=== PATIENT | male | born 1940 | race Caucasian/White ===

== ENCOUNTER 2020-07-03 03:21 | Inpatient (IN) | payer MEDICARE, OTHER ==
[~2020-07-03] VITALS: Ht 170.2 cm; Wt 93.8 kg
[~2020-07-03 03:21] MED LIST: ASPI81CH PO; DILT120ERA PO; ELIQUIS5 M1 PO; ENAL20 PO; LOSA25 PO; MULVITMINE PO; SIMV10 PO; [UNRECOGNIZED DRUG - OTHER]
[2020-07-03 03:46] LABS: BASOPHILS ABSOLUTE AUTO 0.04 K/mm3 (0.00-0.23); BASOPHILS PERCENT AUTO 0 % (0-2); EOSINOPHILS ABSOLUTE AUTO 0.64 K/mm3 (0.00-0.68); EOSINOPHILS PERCENT AUTO 7 % (0-6); Hematocrit 47.5 % (37.0-53.0); Hemoglobin 15.7 g/dL (13.5-17.5); IMMATURE GRAN ABSOLUTE AUTO 0.02 K/mm3 (0.00-0.10); IMMATURE GRAN PERCENT AUTO 0 % (0-1); LYMPHOCYTES ABSOLUTE AUTO 2.65 K/mm3 (0.84-5.20); LYMPHOCYTES PERCENT AUTO 28 % (21-46); MONOCYTES ABSOLUTE AUTO 0.96 K/mm3 (0.16-1.47); MONOCYTES PERCENT AUTO 10 % (4-13); Mean Corpuscular HGB 32.5 pg (26.0-34.0); Mean Corpuscular HGB Conc 33.1 g/dL (31.5-36.5); Mean Corpuscular Volume 98 fL (80-100); Mean Platelet Volume 10.2 fL (9.1-12.4); NEUTROPHILS ABSOLUTE AUTO 5.15 K/mm3 (1.96-9.15); NEUTROPHILS PERCENT AUTO 55 % (41-73); Platelet Count 208 K/mm3 (150-400); RDW Coefficient Variation 13.7 % (11.7-14.2); RDW Standard Deviation 50.2 fL (35.1-46.3); Red Blood Cell Count 4.83 M/mm3 (4.30-5.90); White Blood Cell Count 9.46 K/mm3 (4.00-11.30)
[2020-07-03 04:06] LABS: Alanine Aminotransfer (ALT/SGP 35 U/L (12-78); Albumin, Blood 4.3 g/dL (3.4-5.0); Albumin/Globulin Ratio 1.2 (0.8-1.8); Alk Phos 59 U/L (50-136); Anion Gap 5 mmol/L (6-16); Aspartate Aminotrans (AST/SGOT 34 U/L (12-37); Bilirubin, Total 1.3 mg/dL (0.1-1.0); Blood Urea Nitrogen 22 mg/dL (8-24); Bun/Creatinine Ratio 15.8 (12.0-20.0); CO2, Blood 27 mmol/L (21-32); Calcium, Blood 8.2 mg/dL (8.5-10.1); Chloride, Blood 108 mmol/L (98-108); Creatinine, Blood 1.39 mg/dL (0.60-1.20); Globulin, Blood 3.5 g/dL (2.2-4.0); Glomerular Filtration Rate 52 (60-); Glucose, Blood 132 mg/dL (70-99); Potassium, Blood 4.9 mmol/L (3.5-5.5); Sodium, Blood 140 mmol/L (136-145); Total Protein, Blood 7.8 g/dL (6.4-8.2); Troponin I <0.015 ng/mL (0.000-0.040)
[2020-07-03] MEDS ORDERED: CYCLOBENZAPRINE 5 MG (04:58)
[2020-07-03] MEDS ORDERED: HYDROCODONE-AC1 EA11 (04:58)
[2020-07-03] MEDS ORDERED: NAPROXEN500 MG (04:59)
[2020-07-03] MEDS ORDERED: Lovastatin20 MG PO (05:01)
--- NOTE | 2020-07-03 06:00 | NUR ---
ADMISSION: PT ARRIVES ADMIT FROM THE ED. PER PT HE BEGAN TO FEEL HIS HEART RACING LAST NIGHT & AFTER TAKING HIS DOG FOR A WALK, IT BECAME WORSE. HE DROVE HIMSELF TO THE ED @ APPROX 0330 & WAS FOUND TO BE IN AFIB w/RVR W/ MAX RATE IN THE 150s. HE DOES HAVE A KNOWN Hx OF AFIB W/ LAST EPISODE OF RVR APPROX 5 YRS AGO WHICH WAS RESOLVED W/OUT CARDIOVERSION. TONIGHT HE WAS GIVEN A DILTIAZEM BOLUS & GTT STARTED. UPON ARRIVAL DILTIAZEM GTT 15ml/hr W/ HR 110-130bpm. PT DENIES ANY CP OR SOB, HOWEVER WHEN RECALLING MED Hx, PT WAS NOTABLY DYSPNEIC. PT IS ON RA @ HOME, PLACED ON 2L/MIN IN THE ED. SEE ADMIT FOR FULL ASSESSMENT. PLAN FOR RATE CONTROL THIS AM W/ DILTIAZEM DRIP. WILL CONTINUE TO MONITOR UNTIL REPORT OFF TO ONCOMING RN.
[2020-07-03 07:43] LABS: Influenza A, PCR NEGATIVE (NEGATIVE); Influenza B, PCR NEGATIVE (NEGATIVE); Resp Syncytial Virus, PCR NEGATIVE (NEGATIVE); SARS-Cov-2 (COVID-19) PCR, MMC NEGATIVE (NEGATIVE)
--- NOTE | 2020-07-03 11:45 | NUR ---
CARE COORDINATION REFERRAL - ADMIT:07/03/20 DISCHARGE: DX: RAPID AFIB CC: [facility] KAI CALL: PT AT HOME RESIDENCE: HOME CAREGIVER: MARTHA THURSTON, CHILD, MARTHA EPTTIT, FAMILY MEMBER, MARYCHUY WILSON, CHILD DX: AFIB AND A FLUTTER, HTN, CKD-STAGE 3, SEE LIST DME: NONE CCM: NONE HOME HEALTH: NONE SUMMARY: ADMIT: 07/03/20 07/03/20- PER CHART REVIEW WITH DR. MUNGUIA, PT IS HAVING AFIB WITH RVR. SHE HAS ASKED FOR A CARDIOLOGY CONSULT PRIOR TO PT D/C. PLAN IS TO D/C ON Friday. -LIZBET
--- NOTE | 2020-07-03 18:08 | NUR ---
PT SUMMARY: PT REMAINS ON CARDIZEM GTT AT 10MG/HR HRR REMAINS AFLUTTER RATE 80-110'S INCREASES UP TO 130'S, WITH EXERTION. PT ALSO C/O SOB/WHEEZING WITH EXERTION DR FLORES CAME TO SEE PT AND RE-ASSESSED TWICE AND ITS MORE OF LIKE UPPER RESPI WHEEZING AND RECOMMENDS TO WAIT FOR ECHO RESULT ORDERED VISTARIL FOR NOW FOR SLEEP/ANXIETY. PT DENIES ANY CHEST PAIN/PRESSURE. NO OTHER ISSUES REPORTED. DR NEIL CONSULTED FOR MEDICAL MANAGEMENT. AWAITING FOR ECHO RESULT AT THIS TIME, EKG IN AM. DAUGHTER CAME IN TO VISIT. NO OTHER ISSUES ENCOUNTERED. ABLE TO MAKE NEEDS KNOWN, CALLS APPROPRIATELY WILL MONITOR
--- NOTE | 2020-07-03 19:15 | NUR ---
PT ARRIVED IN THE UNIT VIA STRETCHER FROM [facility], WAS ABLE TO STAND TRANSFER TO PCU BED SBA, REPORT RECEIVED FROM ROBERTO ROGERS. VITALS HRR ST 130'S, BP SYSTOLIC 150'S, SATS ABOVE 95% ON2L OF O2, AFEBRILE. SOB WITH EXERTION. PT IS HERE FOR PULMONARY EMBOLISM RLL, PT ON HEPARIN GTT AT 15U/KG/HR. NS AT 100MLS/HR. PT GOT SITUATED IN BED, CURRENTLY NPO AT THIS TIME. ALERT AND ORIENTED X4 [place]. REPORT GIVEN TO NELSON GUTIERREZ RN
--- NOTE | 2020-07-03 19:45 | NUR ---
CARE ASSUMED FROM DAYSHIFT RN PT ON DILT GTT, SITTING UP IN CHAIR, SOB WITH ANY MOVEMENT. ON RA. BS: CLEAR BILAT DECREASED BASES. NO EDEMA NOTED. ALL ROUND BUTCHER IN ROOM GIVING DIG IV PUSH AND D/C CARDIZEM GTT. CONTINUE ASSESSMENT AND CARE.
--- NOTE | 2020-07-04 03:18 | NUR ---
ASSESSMENT MD NOTIFICATION A-FLUTTER RATE 125-145, HAS SLOWLY INCREASED OVER COURSE OF NIGHT. RESOURCE EFFICIENCY MANAGER AND MD NOTIFIED. PT SLEEPING, WAKES TO VOICE, A&O, VITALS STABLE AND NOTED IN FLOWSHEET. INCREASED AMTS UO OVERNIGHT, APROX 2100 ML MEASURED PLUS 3 UNMEASURED VOIDS. CONTINUE ASSESSMENT AND CARE.
[2020-07-04 04:04] LABS: BASOPHILS ABSOLUTE AUTO 0.03 K/mm3 (0.00-0.23); BASOPHILS PERCENT AUTO 0 % (0-2); EOSINOPHILS ABSOLUTE AUTO 0.51 K/mm3 (0.00-0.68); EOSINOPHILS PERCENT AUTO 6 % (0-6); Hematocrit 45.3 % (37.0-53.0); Hemoglobin 15.2 g/dL (13.5-17.5); IMMATURE GRAN ABSOLUTE AUTO 0.01 K/mm3 (0.00-0.10); IMMATURE GRAN PERCENT AUTO 0 % (0-1); LYMPHOCYTES ABSOLUTE AUTO 1.69 K/mm3 (0.84-5.20); LYMPHOCYTES PERCENT AUTO 19 % (21-46); MONOCYTES ABSOLUTE AUTO 0.83 K/mm3 (0.16-1.47); MONOCYTES PERCENT AUTO 9 % (4-13); Mean Corpuscular HGB 32.4 pg (26.0-34.0); Mean Corpuscular HGB Conc 33.6 g/dL (31.5-36.5); Mean Corpuscular Volume 97 fL (80-100); Mean Platelet Volume 10.3 fL (9.1-12.4); NEUTROPHILS PERCENT AUTO 66 % (41-73); Platelet Count 222 K/mm3 (150-400); RDW Coefficient Variation 13.6 % (11.7-14.2); RDW Standard Deviation 48.1 fL (35.1-46.3); Red Blood Cell Count 4.69 M/mm3 (4.30-5.90); White Blood Cell Count 8.97 K/mm3 (4.00-11.30)
[2020-07-04 04:31] LABS: Bun/Creatinine Ratio 16.8 (12.0-20.0); Calcium, Blood 8.9 mg/dL (8.5-10.1); Creatinine, Blood 1.49 mg/dL (0.60-1.20); Magnesium, Blood 2.2 mg/dL (1.6-2.4); Potassium, Blood 4.1 mmol/L (3.5-5.5); Thyroid Stimulating Hormone 2.13 uIU/mL (0.360-4.800)
--- NOTE | 2020-07-04 05:56 | NUR ---
MD NOTIFICATIONA FLUTTER INCREASED 125-150, MEDS GIVEN PER JUN. NO CHANGES. MD NOTIFIED, NO NEW ORDER AT THIS TIME.
--- NOTE | 2020-07-04 06:29 | NUR ---
MD JOSEPH EKG READS ACUTE NM/STEMI. PT HR REMAINS 130-145 A-FLUTTER. NOTOFI[address]. ALDANA, AND THEN NOTIFIED CARDI DR. NEIL. VETERINARY MEDICINE TEACHER AWARE.
--- NOTE | 2020-07-04 09:59 | NUR ---
SPOKE WITH PHYSICIAN PHYSICIAN ORDERS FOR ANOTHER BOLUS OF AMIODARONE, SEE EMAR.
--- NOTE | 2020-07-04 13:06 | NUR ---
Patient is sitting on a chair and alert. 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 He talks about the complications with regulating his heart rate and his hopes that it can be managed with medications. He talks about his Denominational background and that he has not been a part of the taoist for decades. He states that he finds his strength from family and friends. Patient shows no signs of spiritual distress and shares that he is at peace with and dying. I reinforce helpful attitudes and practices and provide therapeutic listening and companionship. Patient responds well and displays evidence of an elevated mood. I will continue to remain available to patient and family.
--- NOTE | 2020-07-04 14:37 | NUR ---
07/04/20- PER CHART REVIEW WITH DR. MUNGUIA, PT WILL NOT BE D/C TODAY DUE TO CARDIAC EVENTS BEING MONITORED BY DR. NEIL. PT HAD ECHO DONE YESTERDAY AND OVER NIGHT, HE WENT INTO AFLUTTER WITH RVR. HE HAS RESPONDED POSITIVE TO DIURESES. -LIZBET
--- NOTE | 2020-07-04 17:00 | NUR ---
IV INFILTRATED AMIODARONE GTT INFILTRATED IN R FOREARM. PHARMACY INFORMED. IV REMOVED. PT REPORTS NO TENDERNESS AT SITE.
--- NOTE | 2020-07-04 17:35 | NUR ---
SHIFT SUMMARY PT ALERT AND ORIENTED X 4. AMIO GTT, SEE EMAR. HR TACHYCARDIC, PHYSICIAN AWARE. SEE EHR. DISCUSSION OF POSSIBLE CARDIOVERSION IN AM WITH CLINICAL COORDINATOR. BP STABLE. OXYGEN SATURATION MAINTAINED ABOVE 92% ON RA. PT IND IN ROOM. WILL CONTINUE TO MONITOR UNTIL REPORT GIVEN TO NIGHTSHIFT RN.
[2020-07-05 04:41] LABS: BASOPHILS ABSOLUTE AUTO 0.03 K/mm3 (0.00-0.23); BASOPHILS PERCENT AUTO 0 % (0-2); EOSINOPHILS ABSOLUTE AUTO 0.63 K/mm3 (0.00-0.68); EOSINOPHILS PERCENT AUTO 7 % (0-6); Hematocrit 46.9 % (37.0-53.0); Hemoglobin 15.9 g/dL (13.5-17.5); IMMATURE GRAN ABSOLUTE AUTO 0.03 K/mm3 (0.00-0.10); IMMATURE GRAN PERCENT AUTO 0 % (0-1); LYMPHOCYTES ABSOLUTE AUTO 1.57 K/mm3 (0.84-5.20); LYMPHOCYTES PERCENT AUTO 18 % (21-46); MONOCYTES ABSOLUTE AUTO 0.97 K/mm3 (0.16-1.47); MONOCYTES PERCENT AUTO 11 % (4-13); Mean Corpuscular HGB 32.2 pg (26.0-34.0); Mean Corpuscular HGB Conc 33.9 g/dL (31.5-36.5); Mean Corpuscular Volume 95 fL (80-100); Mean Platelet Volume 10.2 fL (9.1-12.4); NEUTROPHILS ABSOLUTE AUTO 5.66 K/mm3 (1.96-9.15); NEUTROPHILS PERCENT AUTO 64 % (41-73); Platelet Count 220 K/mm3 (150-400); RDW Coefficient Variation 13.3 % (11.7-14.2); RDW Standard Deviation 47.1 fL (35.1-46.3); Red Blood Cell Count 4.94 M/mm3 (4.30-5.90); White Blood Cell Count 8.89 K/mm3 (4.00-11.30)
[2020-07-05 04:58] LABS: Bun/Creatinine Ratio 21.5 (12.0-20.0); Calcium, Blood 9.1 mg/dL (8.5-10.1); Creatinine, Blood 1.77 mg/dL (0.60-1.20); Potassium, Blood 4.1 mmol/L (3.5-5.5)
--- NOTE | 2020-07-05 05:08 | NUR ---
SHIFT SUMMARY PT A&O X 4; PLEASANT & COMPLIANT W/ CARE; DENIES CHEST PAIN; VSS; O2 SATS >93 ON RA; AMIO GTT INFUSING; INDEPENDENT IN ROOM FOR BATROOM PRIVILEGES, NO GAIT DISTURBANCES NOTED; STATES HE IS FEELING ANXIOUS ABOUT CONVERSION PROCEDURE THIS AM; ALLOWED PT TIME TO EXPRESS FEELINGS; MEDICATED W/ VISTARIL; CALL LIGHT IN REACH; BED IN LOWEST POSITION; WILL CONTINUE TO MONITOR CLOSELY UNTIL HAND OFF TO DAY SHIFT RN.
--- NOTE | 2020-07-05 12:04 | NUR ---
07/05/20- Per chart review with Dr. Archibald, pt will stay one more night so that Harriet can observe him over night. Met with pt., he states that he is feeling better after his cardioversion today. He is agreeable with the plan to d/c tomorrow. He states that his daughter is in town and can help with post hospital care. He reports that he does not need assistance and he drove himself in and car is in parking lot. -daisy
--- NOTE | 2020-07-05 17:48 | NUR ---
PT SUMMARY: [facility] PT CONVERTED BACK TO SINUS RHYTHM AFTER 200J SHOCK DELIVERED. PT HAS BEEN SINUS RHYTHM WITH OCCASIONAL PVC'S AND PAC'S. PT STARTED ON AMIODARONE PO 400 MG BID X 5DAYS. VITALS STABLE PT DENIES CHEST PAIN AND IS BREATHING MUCH BETTER NOW. PT TO POSSIBLY DC IN AM IF STABLE. NO ACUTE CHANGE ON TELE. NO OTHER ISSUES REPORTED FOR THE SHIFT, PT REMAINED ALERT AND ORIENTED, ABLE TO MAKE NEEDS KNOWN, INDEPENDENT IN THE ROOM. WILL MONITOR UNTIL THE END OF SHIFT
[2020-07-06 04:03] LABS: BASOPHILS ABSOLUTE AUTO 0.04 K/mm3 (0.00-0.23); BASOPHILS PERCENT AUTO 1 % (0-2); EOSINOPHILS ABSOLUTE AUTO 0.63 K/mm3 (0.00-0.68); EOSINOPHILS PERCENT AUTO 8 % (0-6); Hematocrit 45.4 % (37.0-53.0); Hemoglobin 15.1 g/dL (13.5-17.5); IMMATURE GRAN ABSOLUTE AUTO 0.02 K/mm3 (0.00-0.10); IMMATURE GRAN PERCENT AUTO 0 % (0-1); LYMPHOCYTES ABSOLUTE AUTO 1.89 K/mm3 (0.84-5.20); LYMPHOCYTES PERCENT AUTO 23 % (21-46); MONOCYTES ABSOLUTE AUTO 0.95 K/mm3 (0.16-1.47); MONOCYTES PERCENT AUTO 11 % (4-13); Mean Corpuscular HGB 31.7 pg (26.0-34.0); Mean Corpuscular HGB Conc 33.3 g/dL (31.5-36.5); Mean Corpuscular Volume 95 fL (80-100); Mean Platelet Volume 10.3 fL (9.1-12.4); NEUTROPHILS ABSOLUTE AUTO 4.87 K/mm3 (1.96-9.15); NEUTROPHILS PERCENT AUTO 58 % (41-73); Platelet Count 213 K/mm3 (150-400); RDW Coefficient Variation 13.3 % (11.7-14.2); RDW Standard Deviation 47.1 fL (35.1-46.3); Red Blood Cell Count 4.77 M/mm3 (4.30-5.90)
[2020-07-06 04:29] LABS: Bun/Creatinine Ratio 21.3 (12.0-20.0); Creatinine, Blood 1.5 mg/dL (0.60-1.20); Potassium, Blood 4.4 mmol/L (3.5-5.5)
--- NOTE | 2020-07-06 05:58 | NUR ---
SHIFT SUMMARY NO ACUTE CHANGES THIS SHIFT. PT A&OX4. SP02>92% ON RA. TELEMETRY READS SR W/ PVCS, HR 80'S-100'S. PT DENIES PAIN. PT INDEPENDENT IN ROOM, VOIDED IN URINAL FOR ACCURATE I&O. PT SLEPT T/O NIGHT. CALL LIGHT IN REACH. WILL GIVE REPORT TO ONCOMING NURSE.
--- NOTE | 2020-07-06 13:51 | NUR ---
07/06/20- Per chart review with Dr. Archibald, pt is stable to go home. Met with pt and discussed KAI letter, he acknowledged understanding. Pt asked if he needs to follow up with PCP and slurry tank tender. Stated that yes he would need to follow up with both providers. Pt asked if he could keep his appt with director of residential services next week. Encouraged pt to clarify with his nurse. Pt wondered if he would need to have antibiotics prior to seeing the dentist. Encouraged pt to either talk with nurse at discharge, call Dr. Larios's office and ask or call the director of residential services office to discuss. Pt was agreeable with this plan. He asked if he could drive himself home since his car is in the parking lot. He could have his neighbor bring his daughter and drop her off and take him home. Encouraged him to ask nurse just to make sure he could drive home. -daisy
[2020-07-06] MEDS ORDERED: AMIODARONE HCL400 M2 PO (15:12)
[2020-07-06] MEDS ORDERED: AMIODARONE HCL200 MG PO (15:12)
[2020-07-06] MEDS ORDERED: LOSA25 PO (15:13)
[2020-07-06] MEDS ORDERED: METO25ER PO (15:14)
[2020-07-06] MEDS ORDERED: TORSE20 PO (15:14)
--- NOTE | 2020-07-06 16:00 | NUR ---
pt has been discharged to home, new medications called into [facility], spoke with Carey. iv removed intact. went over instructions with him and his daughter, he wasn't clear on what medication was for what, so this was written on his discharge instruction, his daughter is a previous freezer machine operator, and was clear, left via wheelchair with exhaust worker in attendence.
== END 2020-07-06 15:54 | disposition home or self-care (01) | DRG 308 ==
LOC: ER 03:21 → PCU 03:22
PROVIDERS: Emergency Medicine; Family Medicine; ADMIT Family Medicine
PROC: 5A2204Z Restoration of Cardiac Rhythm, Single (ICD-10-PCS; principal; 2020-07-06)
DX: I48.3 Typical atrial flutter (principal); I50.23 Acute on chronic systolic (congestive) heart failure; I13.0 Hypertensive heart and chronic kidney disease with heart failure and stage 1 through stage 4 chronic kidney disease, or unspecified chronic kidney disease; I48.19 Other persistent atrial fibrillation; I48.0 Paroxysmal atrial fibrillation; E66.9 Obesity, unspecified; N18.31 Chronic kidney disease, stage 3a; Z20.822 Contact with and (suspected) exposure to COVID-19; E11.22 Type 2 diabetes mellitus with diabetic chronic kidney disease; I34.0 Nonrheumatic mitral (valve) insufficiency; I42.8 Other cardiomyopathies; G89.29 Other chronic pain; I27.20 Pulmonary hypertension, unspecified; E78.5 Hyperlipidemia, unspecified; M19.90 Unspecified osteoarthritis, unspecified site; M54.5 Low back pain; M54.30 Sciatica, unspecified side; Z98.890 Other specified postprocedural states; Z79.01 Long term (current) use of anticoagulants; Z87.891 Personal history of nicotine dependence; Z79.899 Other long term (current) drug therapy
CPT/HCPCS: 0241U; 36415; 71045; 80048; 80053; 83735; 83880; 84443; 84484; 85025; 92960; 93005; 93010; 93306; 96365; 96366; 96375; 96376; 99285-25; A9270; G0378; J0282; J1160; J2704; J7060; J7120; Q0177

== ENCOUNTER 2020-07-08 13:40 | Emergency (ER) | payer MEDICARE, OTHER ==
[~2020-07-08] VITALS: Ht 170.2 cm; Wt 90.3 kg
[~2020-07-08 13:40] MED LIST changes: +AMIODARONE HCL200 MG PO; +AMIODARONE HCL400 M2 PO; +CYCLOBENZAPRINE 5 MG; +HYDROCODONE-AC1 EA11; +Lovastatin20 MG PO; +METO25ER PO; +NAPROXEN500 MG; +TORSE20 PO
[2020-07-08] MEDS ORDERED: TORSE20 PO (14:09)
[2020-07-08] MEDS ORDERED: Amiodarone HCl200 MG PO (14:10)
[2020-07-08] MEDS ORDERED: ASCO500 PO (14:11)
[2020-07-08] MEDS ORDERED: Lovastatin20 MG PO (14:11)
[2020-07-08] MEDS ORDERED: [UNRECOGNIZED DRUG - OTHER] (14:12)
[2020-07-08] MEDS ORDERED: Vitamin D2000 UNIT PO (14:12)
[2020-07-08 14:29] LABS: BASOPHILS ABSOLUTE AUTO 0.06 K/mm3 (0.00-0.23); BASOPHILS PERCENT AUTO 1 % (0-2); EOSINOPHILS ABSOLUTE AUTO 0.85 K/mm3 (0.00-0.68); EOSINOPHILS PERCENT AUTO 9 % (0-6); Hematocrit 46.6 % (37.0-53.0); Hemoglobin 15.6 g/dL (13.5-17.5); IMMATURE GRAN ABSOLUTE AUTO 0.02 K/mm3 (0.00-0.10); IMMATURE GRAN PERCENT AUTO 0 % (0-1); LYMPHOCYTES ABSOLUTE AUTO 2.04 K/mm3 (0.84-5.20); LYMPHOCYTES PERCENT AUTO 21 % (21-46); MONOCYTES ABSOLUTE AUTO 0.97 K/mm3 (0.16-1.47); MONOCYTES PERCENT AUTO 10 % (4-13); Mean Corpuscular HGB 32.4 pg (26.0-34.0); Mean Corpuscular HGB Conc 33.5 g/dL (31.5-36.5); Mean Corpuscular Volume 97 fL (80-100); Mean Platelet Volume 10.1 fL (9.1-12.4); NEUTROPHILS ABSOLUTE AUTO 5.84 K/mm3 (1.96-9.15); NEUTROPHILS PERCENT AUTO 60 % (41-73); Platelet Count 242 K/mm3 (150-400); RDW Coefficient Variation 13.5 % (11.7-14.2); Red Blood Cell Count 4.82 M/mm3 (4.30-5.90); White Blood Cell Count 9.78 K/mm3 (4.00-11.30)
[2020-07-08 14:55] LABS: Alanine Aminotransfer (ALT/SGP 27 U/L (12-78); Albumin, Blood 3.7 g/dL (3.4-5.0); Albumin/Globulin Ratio 0.9 (0.8-1.8); Alk Phos 74 U/L (50-136); Anion Gap 4 mmol/L (6-16); Aspartate Aminotrans (AST/SGOT 25 U/L (12-37); Bilirubin, Total 1.1 mg/dL (0.1-1.0); Blood Urea Nitrogen 29 mg/dL (8-24); Bun/Creatinine Ratio 19.3 (12.0-20.0); CO2, Blood 30 mmol/L (21-32); Calcium, Blood 8.8 mg/dL (8.5-10.1); Chloride, Blood 107 mmol/L (98-108); Globulin, Blood 3.9 g/dL (2.2-4.0); Glomerular Filtration Rate 48 (60-); Glucose, Blood 121 mg/dL (70-99); Potassium, Blood 4.3 mmol/L (3.5-5.5); Sodium, Blood 141 mmol/L (136-145); Total Protein, Blood 7.6 g/dL (6.4-8.2); Troponin I <0.015 ng/mL (0.000-0.040)
== END 2020-07-08 17:03 | disposition home or self-care (01) ==
LOC: ER 13:40
PROVIDERS: Emergency Medicine
DX: I48.91 Unspecified atrial fibrillation (principal); I48.92 Unspecified atrial flutter; I11.0 Hypertensive heart disease with heart failure; I50.9 Heart failure, unspecified; E78.5 Hyperlipidemia, unspecified; Z79.899 Other long term (current) drug therapy; Z87.891 Personal history of nicotine dependence
CPT/HCPCS: 80053; 83880; 84484; 85025; 93005; 93010; 99285-25; A9270